=== PATIENT | female | born 1965 | race Caucasian/White ===

== ENCOUNTER → 2018-10-18 | Day surgery (SDC) | payer OTHER ==
[~2018-10-18] MED LIST: ASPI-630 PO; ATOR10TA60 PO; IV RINGERS,LACTATED 1000ML 1,000 ML IV SCH; LIDOCAINE 1% PF 2 ML VIAL. ID PRN; LISI-334 PO; METF500T16 PO; MIDAZOLAM HCL/PF 2 MG/2 ML VIAL. IV PRN; OMEP40CA5 PO; PROPOFOL 20 ML IV ONE; fentaNYL PF VIAL 100 MCG/2 ML VIAL IV PRN
[2018-10-18 09:27] VITALS: BP 125/58
--- NOTE | 2018-10-18 10:26 | CONS ---
DATE OF CONSULTATION: REFERRING PHYSICIAN: Jayleen in [place]. REASON FOR CONSULTATION: Epigastric pain and heartburn. HISTORY OF PRESENT ILLNESS: A 53-year-old female whose past medical history is significant for hypertension, hyperlipidemia, palpitations, 3, para 3; seen with epigastric abdominal pain associated with heartburn and bloating. She has had several episodes of pain lasting between 15 and 30 minutes. There is no dysphagia or odynophagia. She is not using alcohol or tobacco and has risk factors for reflux. With the continued symptoms, she is here for upper endoscopy. PAST MEDICAL HISTORY: GERD, hypertension, hyperlipidemia and palpitations. ALLERGIES: None. MEDICATIONS: Include aspirin, atorvastatin, lisinopril, metformin and omeprazole 40 mg daily. FAMILY HISTORY: Significant for hypertension with her mother and gallbladder disease with her sister. SOCIAL HISTORY: Nonsmoker and nondrinker. PAST SURGICAL HISTORY: Status post and tubal ligation. REVIEW OF SYSTEMS: As per records. PHYSICAL EXAMINATION: GENERAL: Reveals a well-nourished and well-developed female. VITAL SIGNS: Temperature is 97.9, pulse 77 and respirations 18. HEENT: Reveals normocephalic and atraumatic head. Pupils and extraocular movements not tested. Sclerae anicteric. NECK: Supple. LUNGS: Clear. CARDIOVASCULAR: Reveals S1, S2 appreciable murmur. ABDOMEN: Reveals epigastric tenderness to deep palpation. No appreciable hepatosplenomegaly. EXTREMITIES: Reveals no cyanosis, clubbing or edema. IMPRESSION AND RECOMMENDATIONS: Epigastric abdominal pain with heartburn. The etiology is to be determined. Differential includes gastroesophageal reflux disease, Loera's, gastroparesis, peptic ulcer disease, malignancy and possible gallbladder disease. We will recommend upper endoscopy to further assess. Risks and benefits have been previously discussed. If this is unhelpful, then hepatobiliary imaging with ultrasound and PIPIDA scan with ejection fraction would be pursued. CLAIR REED MD DR: QUIQUE/lizy JOB#: [id number] / [id number]
--- NOTE | 2018-10-19 18:08 | PATHOLOGY ---
[facility] Accession Number: [id number] . 01 Material submitted: . DISTAL ESOPHAGUS BIOPSY . 01 Clinical history: . Heartburn, reflux, rule out Loera's . 02 Diagnosis: Esophageal biopsies, distal esophagus: - Segments of hyperplastic squamous esophageal mucosa consistent with reflux esophagitis. (JPM:temporary receptionist; 10/19/2018) MBR/10/19/2018 . 02 Comment: Sections of the distal esophageal biopsy reveal segments of tangentially oriented, hyperplastic squamous esophageal mucosa. The findings are consistent with reflux esophagitis. There is no evidence of Loera's change, dysplasia, or malignancy. (JPM:temporary receptionist; 10/19/2018) . 02 Electronically signed: . Philip Raya MD, Pathologist NPI- [id number] . 01 Gross description: . Received in formalin labeled "Lisa De La Cruz, distal esophagus biopsy," are 3 segments of triana soft tissue measuring 0.9 x 0.8 x 0.2 cm in aggregate dimensions and ranging from 0.3 to 0.5 cm in maximum dimension. The specimen is submitted entirely in cassette A1. (TSD; 10/18/2018) TOB/TOB . 02 Pathologist provided ICD-10: K21.0 . 02 CPT . 787953 Specimen Comment: A courtesy copy of this report has been sent to Specimen Comment: [phone], . Specimen Comment: Report sent to / DR GUPTA Specimen Comment: A duplicate report has been generated due to demographic updates. Performed at: [address], [place], [place] [id number] MD Jesus Parra MD Phone: [phone] Performed at: 02 [facility] [address] [place] [id number] MD Philip Raya MD Phone: [phone]
== END | disposition home or self-care (01) ==
LOC: SURG 07:18
PROVIDERS: ATTEND Internal Medicine Gastroenterology
DX: K21.0 Gastro-esophageal reflux disease with esophagitis (principal); I10 Essential (primary) hypertension; E78.5 Hyperlipidemia, unspecified; Z79.82 Long term (current) use of aspirin; Z79.84 Long term (current) use of oral hypoglycemic drugs; Z79.899 Other long term (current) drug therapy; Z82.49 Family history of ischemic heart disease and other diseases of the circulatory system; Z98.51 Tubal ligation status
CPT/HCPCS: 43239; J2704

== ENCOUNTER → 2018-12-14 | Outpatient (CLI) | payer OTHER ==
[2018-10-18 09:27] VITALS: BP 125/58
[~2018-12-14] MED LIST changes: +DOCU-150 PO; -IV RINGERS,LACTATED 1000ML 1,000 ML IV SCH; -LIDOCAINE 1% PF 2 ML VIAL. ID PRN; -MIDAZOLAM HCL/PF 2 MG/2 ML VIAL. IV PRN; +OXYC1TAB15 PO; -PROPOFOL 20 ML IV ONE; -fentaNYL PF VIAL 100 MCG/2 ML VIAL IV PRN
[2018-12-14 10:18] LABS: BASO # 0.1 x10^3/uL (0.0-0.2); BASO % 1 % (0-3); EOS # 0.5 x10^3/uL (0.0-0.7); EOS % 6 % (0-3); HEMATOCRIT 39.7 % (36.0-47.0); HEMOGLOBIN 12.7 g/dL (12.0-15.5); LYMPH # 2.6 x10^3/uL (1.0-4.8); LYMPH % 31 % (24-48); MEAN CORPUSCULAR HEMOGLOBIN 25 pg (25-35); MEAN CORPUSCULAR HGB CONC 32 g/dL (31-37); MEAN CORPUSCULAR VOLUME 79 fL (79-100); MONO # 0.6 x10^3/uL (0.0-1.1); MONO % 7 % (0-9); NEUT # 4.6 x10^3uL (1.8-7.7); NEUT % 56 % (31-73); PLATELET COUNT 351 x10^3/uL (140-400); RED BLOOD COUNT 5.02 x10^6/uL (3.50-5.40); RED CELL DISTRIBUTION WIDTH 15.6 % (11.5-14.5); WHITE BLOOD COUNT 8.2 x10^3/uL (4.0-11.0)
[2018-12-14 10:35] LABS: ALBUMIN 3.4 g/dL (3.4-5.0); CALCIUM 9.1 mg/dL (8.5-10.1); CREATININE 0.6 mg/dL (0.6-1.0); GFR 104.2; POTASSIUM 4.2 mmol/L (3.5-5.1); TOTAL BILIRUBIN 0.3 mg/dL (0.2-1.0)
[2018-12-14 22:12] LABS: HEMOGLOBIN A1C 6.1 % (4.8-5.6)
--- NOTE | 2018-12-15 10:11 | NUR ---
FAXED PRE - OP LAB REPORTS TO 'S OFFICE FOR REVIEW AT 1004 THIS AM AND RECEIVED TRANSMITTAL CONFIRMATION.
== END | disposition home or self-care (01) ==
LOC: SURGPAT 09:38
PROVIDERS: ATTEND Surgery
DX: Z01.818 Encounter for other preprocedural examination (principal); K80.20 Calculus of gallbladder without cholecystitis without obstruction
CPT/HCPCS: 36415; 80048; 82040; 82247; 83036; 85025

== ENCOUNTER → 2018-12-20 | Day surgery (SDC) | payer OTHER ==
[~2018-12-20] VITALS: Ht 154.9 cm; Wt 79.8 kg
[~2018-12-20] MED LIST changes: +BUPIVAC MPF-EPI 0.5%-1:200000 30 ML VIAL. ONE; +DEXAMETHASONE SOD PHOS 20 MG/5 ML VIAL. ONE; +GLUCAGON,HUMAN RECOMBINANT 1 MG/ML VIAL. ONE; +GLYCOPYRROLATE 1 MG/5 ML VIAL. ONE; +HYDROmorphone 2 MG/ML VIAL IV PRN; +IOHEXOL 300 MG/ML 100ML VIAL. ONE; +IV RINGERS,LACTATED 1000ML 1,000 ML IV SCH; +KETOROLAC 30 MG/ML INJ FOR OR. INJ ONE; +LIDOCAINE 2% PF 5 ML VIAL. ONE; +MIDAZOLAM HCL/PF 2 MG/2 ML VIAL. ONE; +MORPHINE SULFATE 2 MG/ML VIAL. IV PRN; +NEOSTIGMINE METHYLSULFATE 5 MG/5 ML SYRINGE. ONE; +ONDANSETRON PF 4 MG/2 ML VIAL. IV PRN; +ONDANSETRON PF 4 MG/2 ML VIAL. ONE; +PROCHLORPERAZINE 10 MG/2 ML VIAL. IV PRN; +PROCHLORPERAZINE 10 MG/2 ML VIAL. ONE; +PROPOFOL 20 ML IV ONE; +ROCURONIUM 50 MG/5 ML VIAL. ONE; +SEVOFLURANE 61 TO 120 MINUTES. IH ONE; +SURGICEL HEMOSTAT 4X8 EACH. ONE; +ceFAZolin 2GM PREMIX 2 GM/50 ML BAG IV ONE; +fentaNYL PF VIAL 100 MCG/2 ML VIAL IV PRN; +fentaNYL PF VIAL 100 MCG/2 ML VIAL ONE; +oxyCODONE/APAP 5/325 1 TAB TABLET PO ONE
--- NOTE | 2018-12-20 08:56 | PDOC ---
BRIEF OPERATIVE NOTE Date: Dec 20, 2018 Pre-Op Diagnosis symptomatic cholelithiasis Post-Op Diagnosis same Procedure Performed l/s stevan with eliazar Surgeon Niranjan Adobe Layer Yennifer OTT Anesthesia Type: General Blood Loss 25cc IV Fluid 900cc Specimens Obtained GB Findings supple GB, normal grams Complications none REGINALDO SERRATO MD Dec 20, 2018 08:56
--- NOTE | 2018-12-20 09:00 | DISCH ---
DISCHARGE INSTRUCTIONS Condition on Discharge Condition on Discharge: Stable Activity After Discharge Activity Instructions for Disc: Activity as tolerated, Avoid exertion Lifting Instructions after Dis: No heavy lifting Driving Instructions after Dis: Do not drive (2-3 days) Diet after Discharge Diet after Discharge: Regular Wound Incision Care Wound/Incision Care: Ice to area for comfort Other wound/incision instructi: january shower Tuesday REGINALDO SERRATO MD Dec 20, 2018 09:00
--- NOTE | 2018-12-20 09:01 | RAD ---
Intraoperative cholangiogram, 12/20/2018: HISTORY: Cholecystectomy 4 spot films from surgery are presented for review. Contrast has been injected into the cystic duct remnant. 0.23 minutes of fluoroscopy time was utilized. There is good flow contrast into the duodenum at the ampulla. No filling defect is seen in the common duct to suggest a retained calculus. The incompletely opacified intrahepatic ducts are unremarkable. No contrast extravasation is seen. IMPRESSION: No significant abnormality is detected. Electronically signed by: Ian Rose MD (12/20/2018 8:57 AM) [facility]
[2018-12-20 11:32] VITALS: BP 147/70
--- NOTE | 2018-12-20 13:11 | OP ---
DATE OF SURGERY: 12/20/2018 PREOPERATIVE DIAGNOSIS: Symptomatic cholelithiasis. POSTOPERATIVE DIAGNOSIS: Symptomatic cholelithiasis. PROCEDURE: Laparoscopic cholecystectomy with cholangiogram. SURGEON: Marino Ureña MD. STAFFING ASSISTANT: NAMRATA Elaine. ANESTHESIA: General endotracheal. ESTIMATED BLOOD LOSS: 25. INTRAVENOUS: 900. INDICATIONS: The patient is a 53-year-old with epigastric and right upper quadrant pain. Ultrasound shows stones. She is brought for cholecystectomy. OPERATIVE FINDINGS: The liver was smooth and sharp. The gallbladder was supple. Cholangiograms were normal. Visual inspection of the remainder of the abdomen failed to reveal obvious abnormalities. DESCRIPTION OF PROCEDURE: The patient was brought to the operating suite, given a general endotracheal anesthetic and the abdomen prepped and draped in usual sterile fashion. A supraumbilical incision was infiltrated with local anesthetic, incised and a 5 mm Visiport used to safely gain access into the abdominal cavity, taking care to avoid injury to abdominal contents. Pneumoperitoneum established. Camera inserted. Inspection carried out with results as noted above. With the table in reverse Trendelenburg rolled to the left, the epigastric, midclavicular and lateral ports were placed under direct vision. The gallbladder was retracted superolaterally. The cystic duct and cystic artery were carefully exposed. The duct was clipped on the gallbladder side. Cholangiograms were made. These were normal. In light of this, the catheter was removed. The cystic duct was clipped x 3 and divided, taking care to avoid injury or compromise of the common duct. Cystic artery was clipped and divided and the gallbladder freed from the bed with cautery dissection and placed in an EndoCatch bag. Good hemostasis in the fossa. No evidence of bile leak was seen. Table returned to level. Gallbladder delivered through the epigastric incision. Epigastric incision closed with interrupted 0 Vicryl suture. Intra-abdominal pressure decreased to 6 cm of water. No bleeding from the epigastric closure or from the midclavicular or lateral port sites after their removal. Abdomen decompressed, camera slowly removed, no bleeding seen. Skin incisions closed with subcuticular 4-0 Monocryl. Steri-Strips and sterile dressings applied. The patient awakened from her anesthetic and taken to the recovery room in satisfactory condition. MARINO V. AMA, MD DR: CHAIM/lizy JOB#: [id number] / [id number]
--- NOTE | 2018-12-22 09:08 | PATHOLOGY ---
[facility] Accession Number: [id number] . 01 Material submitted: . GALLBLADDER . 01 Clinical history: . Gallstones . 02 Diagnosis: Gallbladder, cholecystectomy: - Cholelithiasis. - Cholesterolosis. - Chronic cholecystitis. (JPM:kermit; 12/21/2018) MBR/12/21/2018 . 02 Comment: There is no evidence of malignancy. (JPM:kermit; 12/21/2018) . 02 Electronically signed: . Philip Raya MD, Pathologist NPI- [id number] . 01 Gross description: . The specimen is received in formalin, labeled "Lisa West, gallbladder", is an intact gallbladder measuring 7.7 x 2.6 x 1.8 cm with abundantly attached adipose tissue and a triana-purple, smooth serosa. The lumen is filled with yellow-green viscous bile admixed with few yellow bosselated calculi and its fragments measuring 2.8 x 1.4 x 1.2 cm in aggregate. The mucosa is triana-brown and diffusely covered by yellow flecks and the wall has an average thickness of 0.1 cm. No discrete masses are identified. [employer] tissue is submitted in A1. ([facility]; 12/20/2018) SHS/SHS . 02 Pathologist provided ICD-10: K80.10, K82.4 . 02 CPT . 649111 Specimen Comment: A courtesy copy of this report has been sent to Specimen Comment: [phone], . Specimen Comment: Report sent to / DR TAVERAS Performed at: 01 [facility] [address] [place] [address] [address], [place] [id number] MD Jesus Parra MD Phone: [phone] Performed at: [address] [id number] MD Philip Raya MD Phone: [phone]
== END | disposition home or self-care (01) ==
LOC: SURG 06:21
PROVIDERS: ATTEND Surgery
DX: K80.10 Calculus of gallbladder with chronic cholecystitis without obstruction (principal); I10 Essential (primary) hypertension; K21.9 Gastro-esophageal reflux disease without esophagitis; E78.00 Pure hypercholesterolemia, unspecified; E11.9 Type 2 diabetes mellitus without complications; Z98.890 Other specified postprocedural states; Z98.51 Tubal ligation status; Z82.49 Family history of ischemic heart disease and other diseases of the circulatory system; Z79.82 Long term (current) use of aspirin; Z79.899 Other long term (current) drug therapy; Z79.84 Long term (current) use of oral hypoglycemic drugs
CPT/HCPCS: 47563; 74300; 82962; 88304; A7015; J0696; J0780; J1100; J1885; J2001; J2250; J2405; J2704; J2710; J3010; J3490; J7030; Q9967; J1610